=== PATIENT | male | born 1965 | race Caucasian/White ===

== ENCOUNTER → 2019-01-23 | Outpatient (CLI) | payer BC ==
--- NOTE | 2019-01-23 13:58 | RADIOLOGY REPORT (SQ) ---
EXAM DESCRIPTION: SHOULDER LEFT 2 OR MORE VIEWS; SHOULDER RIGHT 2 OR MORE VIEWS COMPLETED DATE/TIME: 01/23/2019 1:24 pm REASON FOR STUDY: PAIN IN LT SHOULDER; PAIN IN RT SHOULDER COMPARISON: None. FINDINGS: Three views right shoulder: Minimal AC DJD. No fracture or bone lesion. Right lung abhijit r. Three views left shoulder: Minimal AC DJD. No fracture or bone lesion. Left lung clear. TECHNICAL DOCUMENTATION: JOB ID: [id number] Reading location - IP/workstation name: [email or web address]
--- NOTE | 2019-01-23 13:58 | RADIOLOGY REPORT (SQ) ---
EXAM DESCRIPTION: SHOULDER LEFT 2 OR MORE VIEWS; SHOULDER RIGHT 2 OR MORE VIEWS COMPLETED DATE/TIME: 01/23/2019 1:24 pm REASON FOR STUDY: PAIN IN LT SHOULDER; PAIN IN RT SHOULDER COMPARISON: None. FINDINGS: Three views right shoulder: Minimal AC DJD. No fracture or bone lesion. Right lung abhijit r. Three views left shoulder: Minimal AC DJD. No fracture or bone lesion. Left lung clear. TECHNICAL DOCUMENTATION: JOB ID: [id number] Reading location - IP/workstation name: [email or web address]
--- NOTE | 2019-01-23 14:09 | RADIOLOGY REPORT (SQ) ---
EXAM DESCRIPTION: C SP 4 OR 5 VIEWS COMPLETED DATE/TIME: 01/23/2019 1:24 pm REASON FOR STUDY: CERVICALGIA M25.511 PAIN IN RIGHT SHOULDER M25.512 PAIN IN LEFT SHOULDER M54.2 CERVICALGIA COMPARISON: None. NUMBER OF VIEWS: Five views including obliques. TECHNIQUE: AP, lateral, obliques and odontoid radiographic images acquired of the cervical spine. LIMITATIONS: None. FINDINGS: MINERALIZATION: Normal. ALIGNMENT: Normal. VERTEBRAE: Maintained height. No fracture or worrisome bone lesion. DISCS: C5-6 and C6-7 disc space narrowing and osteophytes. POSTERIOR ELEMENTS: Pedicles and facets are intact. No posterior arch defects. Facet arthropathy is present. FORAMINA: Right neural foramina are relatively patent. Left foraminal narrowing at C3-4. HARDWARE: None in the spine. PARASPINAL SOFT TISSUES: Normal. OTHER: No other significant finding. IMPRESSION: SPONDYLOSIS WITHOUT BONE LESION OR FRACTURE. TECHNICAL DOCUMENTATION: JOB ID: [id number] [employer]- All Rights Reserved Reading location - IP/workstation name: [email or web address]
== END ==
LOC: OD 12:08
PROVIDERS: ATTEND Nurse Practitioner Family
DX: M25.511 Pain in right shoulder (principal); M25.512 Pain in left shoulder; M54.2 Cervicalgia
CPT/HCPCS: 72050